=== PATIENT | female | born 1955 | race Caucasian/White ===

== ENCOUNTER → 2016-06-22 | Outpatient (REF) ==
[2016-06-22 11:37] LABS: FERRITIN 56 ng/mL (11-264)
== END ==
LOC: ZLAB.WCH 09:37
PROVIDERS: Family Medicine
DX: Z01.89 Encounter for other specified special examinations (principal)

== ENCOUNTER → 2018-05-16 | Outpatient (REF) | LOC: ZLAB.WCH 18:01 | DX: Z01.89 Encounter for other specified special examinations (principal) ==

== ENCOUNTER 2021-02-23 09:15 | Day surgery (SDC) | payer BC, MEDICARE, OTHER ==
[2021-02-23] VITALS (8 sets, daily range): BP systolic 102–150; BP diastolic 53–76; PULSE 55–77; TEMP 97.5–98.9
[~2021-02-23] VITALS: Ht 152.4 cm; Wt 78.5 kg
[2021-02-23] MEDS ORDERED: PROTONIX20 MG PO (11:32)
[2021-02-23] MEDS ORDERED: CELEXA 20MG20 MG/TAB PO (11:33)
[2021-02-23] MEDS ORDERED: NORVASC 5MG5 MG/TAB PO (11:33)
--- NOTE | 2021-02-23 12:00 | NUR ---
Patient taken per wheelchair to radiology by
--- NOTE | 2021-02-23 12:30 | NUR ---
Returns to room 5 per wheelchair and pictures completed. Warm blankets given. IV fluids of LR connceted to INT site and infusing at 125cc/hr.
[2021-02-23 16:10] LABS: HEMOGLOBIN 11.5 g/dl (12.5-16.0); MEAN CELL VOLUME 91 fl (80.0-100.0); MEAN CORPUSCULAR HEMOGLOBIN 29 pg (27.0-31.0); MEAN CORPUSCULAR HGB CONC 32 g/dl (33.0-37.0); MEAN PLATELET VOLUME 9.2 fl (7.4-10.4); PLATELET COUNT 173 K/mm3 (130-400); RED BLOOD COUNT 3.95 M/mm3 (4.10-5.30); REDCELL DISTRIBUTION WIDTH-CV 13.9 % (11.5-14.5)
[2021-02-23 16:11] LABS: ANION GAP 7 mmol/L (7-16); BLOOD UREA NITROGEN 17 mg/dL (7-17); CALCIUM 8.3 mg/dL (8.4-10.2); CARBON DIOXIDE 28 mmol/L (22-30); CHLORIDE 106 mmol/L (98-107); CREATININE, serum 0.75 (0.52-1.25); GLUCOSE 108 mg/dL (74-106); MAGNESIUM 2.1 mg/dL (1.6-2.3); PHOSPHOROUS 3.8 mg/dL (2.5-4.5); POTASSIUM 4.1 mmol/L (3.4-5.0); SODIUM 140 mmol/L (137-145)
[2021-02-23 16:12] LABS: HEMATOCRIT 36.1 % (37.0-47.0)
[2021-02-23 16:24] LABS: TROPONIN-I < 0.012 ng/mL (0.000-0.035)
--- NOTE | 2021-02-23 16:30 | NUR ---
Pt arrived to room 310 from PACU at this time. Oriented pt and daughter to room. Bilateral chest incisions CDI, JOYCE drains x2 w/thin red output. Pt denies pain at this time. Med rec updated. Denies needs at this time. Call light in reach.
--- NOTE | 2021-02-23 20:55 | NUR ---
Patient is resting in bed, alert and oriented x 4, reports no nausea or vomiting. Pain rated as 2 in the left chest. PRN provided. JOYCE drained. HR WNL A box of sandwich given too. No further needs at this time. Call light within reach.
[2021-02-24 03:10] VITALS: BP 124/56; PULSE 66; TEMP 97.7
--- NOTE | 2021-02-24 06:32 | NUR ---
Patient has had no heart issues at night. She tried to sleep but reported having insomnia. The JOYCE were drained constantly with move volume in the right than the left. No further issues at this time. Call light within reach. Shift report will be given.
--- NOTE | 2021-02-24 07:29 | NUR ---
PT IS AWAKE, STATES SHE IS NOT IN ANY PAIN AT THIS TIME. DRAINS ARE DRAINING WELL, PT STATES SHE IS READY TO GO HOME. DR. AGUILERA SHOULD BE BY TO ROUND ON PATIENT SOON. NO FURTHER CONCERNS AT THIS TIME.
[2021-02-24 08:38] VITALS: BP 139/66; PULSE 62; TEMP 97.7
--- NOTE | 2021-02-24 09:24 | NUR ---
Initial visit; Patient and daughter thanked Accounts Receivable Associate for looking in on Fanny who was receptive and thankful for Accounts Receivable Associate visit and saying a prayer for healing for her.
--- NOTE | 2021-02-24 09:55 | NUR ---
JOYCE DRAINS ARE BOTH IN TACT, DRAINING DARK RED BLOOD. NO CONCERNS.
[2021-02-24 11:49] VITALS: BP 122/56; PULSE 65; TEMP 98.4
--- NOTE | 2021-02-24 14:04 | NUR ---
MIRANDA met with the patient and her daughter, Gissell (ph#[phone]), to discuss discharge plan. The patient lives in [place] and she states that Gissell lives with her. She reports independence with ADLs and does not have any DME. The patient's PCP is Dr. Avery Connell in [place] and she receives her medications at a [facility] in [place]. She reports no difficulties obtaining her meds. The patient does not have a DPOA-HC, but she was interested in obtaining a form. MIRANDA provided. The patient plans to return home with Gissell upon discharge. No additional needs at this time. *Discharge plan: home with daughter*
[2021-02-24] MEDS ORDERED: NORCO 325 MG-51 TAB PO (15:07)
== END 2021-02-24 15:15 | disposition home or self-care (01) ==
LOC: SDCO 09:15 → MEDICAL 09:15 → SDCO 10:00 → MEDICAL 16:55 → SDCO 02-24 15:15
PROVIDERS: Surgery
DX: C50.412 Malignant neoplasm of upper-outer quadrant of left female breast (principal); K21.9 Gastro-esophageal reflux disease without esophagitis; E66.9 Obesity, unspecified; M43.10 Spondylolisthesis, site unspecified; I97.88 Other intraoperative complications of the circulatory system, not elsewhere classified; I10 Essential (primary) hypertension; E11.9 Type 2 diabetes mellitus without complications; F32.9 Major depressive disorder, single episode, unspecified; F41.9 Anxiety disorder, unspecified; Z90.710 Acquired absence of both cervix and uterus; Z79.899 Other long term (current) drug therapy; Z85.3 Personal history of malignant neoplasm of breast; Z20.822 Contact with and (suspected) exposure to COVID-19; Z80.3 Family history of malignant neoplasm of breast; Z80.41 Family history of malignant neoplasm of ovary; Z80.9 Family history of malignant neoplasm, unspecified
CPT/HCPCS: OP; A9541; G0378; J1100; J1885; J2250; J2405; J2704; J2795; J3010; J7120